=== PATIENT | male | born 1960 | race Caucasian/White ===

== ENCOUNTER 2017-01-09 14:03 | Emergency (ER) | payer OTHER ==
[~2017-01-09 14:03] MED LIST: CLC100 PO; MORP30TA23 PO; Oxycodone PO
[2017-01-09] MEDS ORDERED: SODIUM CHLORIDE 0.9% 1000ML 1,000 ML IV STA ×2 (14:10)
[2017-01-09] MEDS ORDERED: FENTANYL CITRATE INJ 50 MCG/1 ML 2 ML VIAL IV STA (14:10)
[2017-01-09] MEDS ORDERED: FENTANYL CITRATE INJ 50 MCG/1 ML 2 ML VIAL ONE (14:15)
[2017-01-09 14:19] VITALS: O2SAT 95
[2017-01-09] MEDS ORDERED: OPTIRAY 320 IV PRN (14:30)
[2017-01-09 14:41] LABS: BASO % 0.4 %; BASO ABS # 0.02 K/uL (0-0.2); COMPLETE YES; EOS % 0.8 %; HEMATOCRIT 40.4 % (42-52); LYMPH % 22.8 %; LYMPH ABS # 1.16 K/uL (1.2-3.4); MEAN CELL VOLUME 90.6 fL (80-100); MEAN CORPUSCULAR HEMOGLOBIN 31.2 pg (25-34); MEAN CORPUSCULAR HGB CONC 34.4 g/dl (32-36); MEAN PLATELET VOLUME 10.5 fL (7.4-10.4); MONO % 6.3 %; NEUT % 68.7 %; PLATELET COUNT 140 K/uL (130-400); RED BLOOD COUNT 4.46 M/uL (4.7-6.1); WHITE BLOOD COUNT 5.08 K/uL (4.8-10.8)
[2017-01-09 14:43] LABS: ISTAT CREATININE 1.5 mg/dl (0.6-1.3); ISTAT HEMOGLOBIN 14.3 g/dl (14.0-18.0); ISTAT IONIZED CALCIUM 1.22 mmol/l (1.12-1.32)
[2017-01-09 14:43] LABS: VENOUS BLOOD GAS PCO2 48 mmHg (38.0-50.0); VENOUS BLOOD GAS PO2 30 mmHg
[2017-01-09 14:44] LABS: VEN BLD GAS O2 SATURATION < 60.0 %
--- NOTE | 2017-01-09 14:52 | DIAGNOSTIC IMAGING REPORT ---
CHEST ONE VIEW PORTABLE CLINICAL HISTORY: EVALUATE FOR TRAUMA/INJURY pain COMPARISON STUDY: 11/13/2006 FINDINGS: The bones soft tissues and hemidiaphragms are normal. The cardiomediastinal silhouette is normal. The lungs are clear. The pulmonary vasculature is normal. IMPRESSION: Negative chest. The above report was generated using voice recognition software. It may contain grammatical, syntax or spelling errors. Electronically signed by: David Manzanares M.D. 01/09/2017 2:51 PM Dictated Date/Time: 01/09/2017 2:51 PM
--- NOTE | 2017-01-09 14:55 | DIAGNOSTIC IMAGING REPORT ---
PELVIS 1 OR 2 VIEW ROUTINE CLINICAL HISTORY: pelvic pain fall COMPARISON STUDY: Pelvis 09/22/2006. FINDINGS: Mild right and moderate to severe left hip osteoarthritis. This has progressed. Vascular coils are seen within the left side of the pelvis. No fracture or dislocation within the pelvis or hips. The right greater trochanter is not completely included on this study. The sacrum appears intact. IMPRESSION: No fracture or dislocation within the pelvis or hips. Electronically signed by: Addison Hernandez M.D. 01/09/2017 2:53 PM Dictated Date/Time: 01/09/2017 2:51 PM
[2017-01-09] MEDS ORDERED: FENTANYL CITRATE INJ 50 MCG/1 ML 2 ML VIAL IV ONE (15:02)
--- NOTE | 2017-01-09 15:02 | DIAGNOSTIC IMAGING REPORT ---
HEAD CT NONCONTRAST CT DOSE: HISTORY: Trauma. Injury. EVALUATE FOR TRAUMA/INJURY TECHNIQUE: Multiaxial CT images of the head were performed without the use of intravenous contrast. Automated exposure control was utilized for this study. A dose lowering technique was utilized adhering to the principles of ALARA. Comparison: None. Findings: The paranasal sinuses and mastoid air cells are clear. The calvarium and skull base are intact. The ventricles and sulci are within normal limits. There is no mass, hematoma, midline shift, or acute infarct. Impression: No acute intracranial abnormality. Electronically signed by: Addison Hernandez M.D. 01/09/2017 3:00 PM Dictated Date/Time: 01/09/2017 2:56 PM
--- NOTE | 2017-01-09 15:02 | DIAGNOSTIC IMAGING REPORT ---
CERVICAL SPINE W/O CT DOSE: HISTORY: Trauma. Pain. EVALUATE FOR TRAUMA/INJURY TECHNIQUE: Multiaxial CT images of the cervical spine were performed and reformatted in the sagittal and coronal plane without the use of contrast. A dose lowering technique was utilized adhering to the principles of ALARA. COMPARISON: None. FINDINGS: No fractures. No subluxation. Prevertebral soft tissues and the C1-C2 interval are intact. No pneumothorax. IMPRESSION: No fractures within the cervical spine. Moderate degenerative change The above report was generated using voice recognition software. It may contain grammatical, syntax or spelling errors. Electronically signed by: David Manzanares M.D. 01/09/2017 3:01 PM Dictated Date/Time: 01/09/2017 2:58 PM
--- NOTE | 2017-01-09 15:06 | DIAGNOSTIC IMAGING REPORT ---
THORACIC SPINE CT CT DOSE: HISTORY: back pain fall TECHNIQUE: Multiaxial CT images of the thoracic spine were performed and reformatted in the sagittal and coronal plane without the use of contrast. A dose lowering technique was utilized adhering to the principles of ALARA. COMPARISON: None. FINDINGS: No fractures. No subluxation. Paraspinal soft tissues are unremarkable. Minimal to mild degenerative changes seen within the thoracic spine. IMPRESSION: No fractures within the thoracic spine. Electronically signed by: Addison Hernandez M.D. 01/09/2017 3:05 PM Dictated Date/Time: 01/09/2017 3:00 PM
--- NOTE | 2017-01-09 15:06 | DIAGNOSTIC IMAGING REPORT ---
(CHEST) THORAX WITH CT DOSE: 2783.50 mGy.cm HISTORY: Trauma Trauma TECHNIQUE: Multiaxial CT images of the chest were performed following the intravenous administration of contrast. A dose lowering technique was utilized adhering to the principles of ALARA. COMPARISON: None. FINDINGS: The lungs are clear. The mediastinal vascular structures are within normal limits. No mediastinal or hilar lymphadenopathy. No pleural effusion or pneumothorax. Limited views of the upper abdomen demonstrate a normal liver and spleen. IMPRESSION: No significant abnormality identified within the chest. Minimal dependent basilar atelectasis. The above report was generated using voice recognition software. It may contain grammatical, syntax or spelling errors. Electronically signed by: David Manzanares M.D. 01/09/2017 3:04 PM Dictated Date/Time: 01/09/2017 3:01 PM
[2017-01-09 15:08] LABS: ALT/SGPT 83 U/L (12-78); AST/SGOT 64 U/L (15-37); BLOOD UREA NITROGEN 20 mg/dl (7-18); CALCIUM 9.9 mg/dl (8.5-10.1); CARBON DIOXIDE 27 mmol/L (21-32); CHLORIDE 108 mmol/L (98-107); GLUCOSE 118 mg/dl (70-99); POTASSIUM 3.7 mmol/L (3.5-5.1); SODIUM 145 mmol/L (136-145)
--- NOTE | 2017-01-09 15:09 | DIAGNOSTIC IMAGING REPORT ---
ABD/PELVIS IV CONTRAST ONLY CT DOSE: HISTORY: Trauma. Pain. abd back pain TECHNIQUE: Multiaxial CT images of the abdomen and pelvis were performed following the use of intravenous contrast. A dose lowering technique was utilized adhering to the principles of ALARA. COMPARISON STUDY: None. FINDINGS: Lung bases show minimal dependent atelectasis. Liver spleen and pancreas are uniform. Mild abdominal and pelvic adenopathy is stable to improved from the prior study. Bowel pattern is nonobstructive. Kidneys negative for hydronephrosis. Bladder is midline. No significant free fluid within the pelvic cul-de-sac region. IMPRESSION: No acute process in the abdomen or pelvis. Adenopathy improved from the prior PET scan of 2011 The above report was generated using voice recognition software. It may contain grammatical, syntax or spelling errors. Electronically signed by: David Manzanares M.D. 01/09/2017 3:08 PM Dictated Date/Time: 01/09/2017 3:05 PM
[2017-01-09 15:10] LABS: ALKALINE PHOSPHATASE 61 U/L (45-117)
--- NOTE | 2017-01-09 15:19 | DIAGNOSTIC IMAGING REPORT ---
LUMBAR SPINE CT CT DOSE: HISTORY: back pain fall TECHNIQUE: Multiaxial CT images of the lumbar spine were performed and reformatted in the sagittal and coronal plane without the use of contrast. A dose lowering technique was utilized adhering to the principles of ALARA. COMPARISON: None. FINDINGS: Nondisplaced fracture within the anterior osteophyte at the superior endplate of L4. No additional fractures identified within the lumbar spine. Vertebral body heights are maintained. Disc space narrowing at L4-L5 and L1-L2. Paraspinal soft tissues are unremarkable. 4 mm of retrolisthesis of L4 and L5. Also mild disc space narrowing at L3-L4. The visualized left sacroiliac joint appears fused. Mild facet degenerative changes seen within the lower lumbar spine. IMPRESSION: Nondisplaced fracture within the anterior osteophyte at the superior endplate of L4. Vertebral body heights are maintained. Electronically signed by: Addison Hernandez M.D. 01/09/2017 3:18 PM Dictated Date/Time: 01/09/2017 3:12 PM
[2017-01-09] MEDS ORDERED: LACTATED RINGER'S 1000ML 1,000 ML IV STA (15:20)
--- NOTE | 2017-01-09 15:54 | DIAGNOSTIC IMAGING REPORT ---
R ANKLE MIN 3 VIEWS ROUTINE, R TIBIA/FIBULA 2 VIEWS ROUTINE, R FOOT MIN 3 VIEWS ROUTINE CLINICAL HISTORY: Right lower leg, ankle, foot pain. Fall. COMPARISON STUDY: None. FINDINGS: Possible nondisplaced fracture within the distal right fibula. Questionable step-off within the posterior calcaneus. This may also represent a small fracture. This is nondisplaced. There is a homolateral Lisfranc fracture/dislocation. This demonstrates up to 1.8 cm of lateral displacement. Soft tissue swelling within the midfoot. No acute fracture within the tibia or proximal fibula. IMPRESSION: 1. Displaced homolateral Lisfranc fracture/dislocation. 2. Possible nondisplaced fractures within the distal right fibula and posterior calcaneus. Electronically signed by: Addison Hernandez M.D. 01/09/2017 3:52 PM Dictated Date/Time: 01/09/2017 3:47 PM
[2017-01-09] MEDS ORDERED: MoRPHine SULFATE 4 MG/ML 1 ML CARP\\VIAL IV STA (15:55)
--- NOTE | 2017-01-09 15:58 | DIAGNOSTIC IMAGING REPORT ---
LEFT FOOT 2 VIEWS CLINICAL HISTORY: Left foot pain status post trauma COMPARISON: None DISCUSSION: There is a talonavicular dislocation. There is also a subtalar dislocation. No metatarsal fractures are visualized the provided projections. IMPRESSION: 1. Subtalar dislocation 2. Dislocation of the talonavicular joint. Electronically signed by: Colton Villagran M.D. 01/09/2017 3:56 PM Dictated Date/Time: 01/09/2017 3:54 PM
--- NOTE | 2017-01-09 16:01 | DIAGNOSTIC IMAGING REPORT ---
LEFT ANKLE 2 VIEWS CLINICAL HISTORY: Left ankle pain status post trauma COMPARISON: None. DISCUSSION: Evaluation is difficult due to positioning and the patient's hindfoot deformity. There is a subtalar dislocation. There is a talonavicular dislocation. There is an equivocal medial malleolar fracture. There are small fracture fragment is visualized adjacent to the inferolateral talus. IMPRESSION: 1. Subtalar dislocation 2. Talonavicular dislocation 3. Tiny fracture fragments adjacent to the inferolateral talus 4. Equivocal chip fracture arising from the medial malleolus Electronically signed by: Colton Villagran M.D. 01/09/2017 3:59 PM Dictated Date/Time: 01/09/2017 3:57 PM
--- NOTE | 2017-01-09 16:06 | DIAGNOSTIC IMAGING REPORT ---
L TIBIA/FIBULA 2 VIEWS ROUTINE CLINICAL HISTORY: pain deformity pain. COMPARISON: None. DISCUSSION: The bones and joint spaces appear intact. There is no evidence of fracture, dislocation or bony disease. There is no evidence for soft tissue swelling. IMPRESSION: Negative study. Linear lucency of the mid tibial shaft on the AP projection felt to be artifactual. The above report was generated using voice recognition software. It may contain grammatical, syntax or spelling errors. Electronically signed by: David Manzanares M.D. 01/09/2017 4:04 PM Dictated Date/Time: 01/09/2017 4:03 PM
[2017-01-09] MEDS ORDERED: D5NSS + 20MEQ KCL 1,000 ML IV STA (16:52)
[2017-01-09 17:01] LABS: URINE APPEARANCE CLEAR (CLEAR); URINE BILIRUBIN NEG (NEG); URINE COLOR YELLOW; URINE NITRITE NEG (NEG); URINE PH 5.5 (4.5-7.5); URINE SPECIFIC GRAVITY 1.026 (1.000-1.030); UROBILINOGEN NEG (NEG)
[2017-01-09 17:04] LABS: MANUAL MICROSCOPIC REQUIRED? NO; REVIEW REQ? NO
--- NOTE | 2017-01-09 17:06 | EMERGENCY ROOM VISIT NOTE ---
History Report prepared by Thom: Stella Gleason Under the Supervision of: Dr. Tenzin Lim M.D. 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 The patient was on his roof. He lost his balance and fell 10 feet to the ground. He landed on his feet. He is having ankle and foot pain. The pain worsens when he bears weight on his feet. He denies any nausea, lightheadedness, back pain, knee pain, hip pain, or neck pain. He is not on any blood thinners. He is not on any medications. He has a history of left hip surgery. Source of History: patient Onset: LATHE SET UP OPERATOR Position: other (global) Quality: other (fall) Timing: other (episodic) Associated Symptoms: No neck pain, No nausea, No back pain Note: Pt reports ankle pain, foot pain. Pt denies lightheadedness, knee pain, hip pain. Review of Systems See HPI for pertinent positives and negatives. A total of ten systems were reviewed and were otherwise negative. Past Medical & Surgical Medical Problems: (1) B-cell lymphoma Social History Smoking Status: Never Smoker Marital Status: single Occupation Status: unemployed Current/Historical Medications No Active Prescriptions or Reported Meds Allergies Coded Allergies: No Known Allergies (Verified , `, 01/09/17) Physical Exam Vital Signs Date Time Temp Pulse Resp B/P (MAP) Pulse Ox O2 Delivery O2 Flow Rate FiO2 01/09/17 19:00 37.1 85 18 145/96 96 01/09/17 18:51 37.1 85 18 145/96 96 01/09/17 18:29 85 18 145/96 96 Room Air 01/09/17 17:45 80 20 154/106 95 Room Air 01/09/17 17:30 78 20 199/109 100 Room Air 01/09/17 15:55 75 20 176/104 98 Room Air 01/09/17 14:31 73 18 112/64 95 Room Air 01/09/17 14:19 95 Room Air 01/09/17 14:08 73 01/09/17 14:06 37.1 76 24 112/64 94 Room Air Physical Exam GENERAL: Awake, alert, well-appearing, in no distress HENT: Normocephalic, atraumatic. Oropharynx unremarkable. Dry mucous membranes. EYES: Normal conjunctiva. Sclera non-icteric. NECK: Mild tenderness to the lower cervical spine. No step offs. RESPIRATORY: Clear to auscultation. CARDIAC: Regular rate, normal rhythm. Extremities warm and well perfused. Pulses equal. ABDOMEN: Soft, non-distended. No tenderness to palpation. No rebound or guarding. No masses. RECTAL: Deferred. MUSCULOSKELETAL: Chest examination reveals no tenderness. The back is symmetrical on inspection without obvious abnormality. There is no CVA tenderness to palpation. No joint edema. Stable pelvis. LOWER EXTREMITIES: Grossly deformed ankles bilaterally with distal cap refill, motor, sensory intact. Left ankle has a large medial malleolar bulge with some mild tenting of the skin and underlying hematoma. Right foot with mild skin tenting on medial aspect of arch. Triphasic PT and DP pulses which are detectable by Doppler bilaterally. NEURO: Normal sensorium. No sensory or motor deficits noted. SKIN: No rash or jaundice noted. Pale, diaphoretic, clammy. Medical Decision & Procedures ER Provider Diagnostic Interpretation: Radiology results as stated below per my review and radiologist interpretation: CHEST ONE VIEW PORTABLE CLINICAL HISTORY: EVALUATE FOR TRAUMA/INJURY pain COMPARISON STUDY: 11/13/2006 FINDINGS: The bones soft tissues and hemidiaphragms are normal. The cardiomediastinal silhouette is normal. The lungs are clear. The pulmonary vasculature is normal. IMPRESSION: Negative chest. The above report was generated using voice recognition software. It may contain grammatical, syntax or spelling errors. Electronically signed by: David Manzanares M.D. 01/09/2017 2:51 PM Dictated Date/Time: 01/09/2017 2:51 PM PELVIS 1 OR 2 VIEW ROUTINE CLINICAL HISTORY: pelvic pain fall COMPARISON STUDY: Pelvis 09/22/2006. FINDINGS: Mild right and moderate to severe left hip osteoarthritis. This has progressed. Vascular coils are seen within the left side of the pelvis. No fracture or dislocation within the pelvis or hips. The right greater trochanter is not completely included on this study. The sacrum appears intact. IMPRESSION: No fracture or dislocation within the pelvis or hips. Electronically signed by: Addison Hernandez M.D. 01/09/2017 2:53 PM Dictated Date/Time: 01/09/2017 2:51 PM R ANKLE MIN 3 VIEWS ROUTINE, R TIBIA/FIBULA 2 VIEWS ROUTINE, R FOOT MIN 3 VIEWS ROUTINE CLINICAL HISTORY: Right lower leg, ankle, foot pain. Fall. COMPARISON STUDY: None. FINDINGS: Possible nondisplaced fracture within the distal right fibula. Questionable step-off within the posterior calcaneus. This may also represent a small fracture. This is nondisplaced. There is a homolateral Lisfranc fracture/dislocation. This demonstrates up to 1.8 cm of lateral displacement. Soft tissue swelling within the midfoot. No acute fracture within the tibia or proximal fibula. IMPRESSION: 1. Displaced homolateral Lisfranc fracture/dislocation. 2. Possible nondisplaced fractures within the distal right fibula and posterior calcaneus. Electronically signed by: Addison Hernandez M.D. 01/09/2017 3:52 PM Dictated Date/Time: 01/09/2017 3:47 PM L TIBIA/FIBULA 2 VIEWS ROUTINE CLINICAL HISTORY: pain deformity pain. COMPARISON: None. DISCUSSION: The bones and joint spaces appear intact. There is no evidence of fracture, dislocation or bony disease. There is no evidence for soft tissue swelling. IMPRESSION: Negative study. Linear lucency of the mid tibial shaft on the AP projection felt to be artifactual. The above report was generated using voice recognition software. It may contain grammatical, syntax or spelling errors. Electronically signed by: David Manzanares M.D. 01/09/2017 4:04 PM Dictated Date/Time: 01/09/2017 4:03 PM LEFT ANKLE 2 VIEWS CLINICAL HISTORY: Left ankle pain status post trauma COMPARISON: None. DISCUSSION: Evaluation is difficult due to positioning and the patient's hindfoot deformity. There is a subtalar dislocation. There is a talonavicular dislocation. There is an equivocal medial malleolar fracture. There are small fracture fragment is visualized adjacent to the inferolateral talus. IMPRESSION: 1. Subtalar dislocation 2. Talonavicular dislocation 3. Tiny fracture fragments adjacent to the inferolateral talus 4. Equivocal chip fracture arising from the medial malleolus Electronically signed by: Colton Villagran M.D. 01/09/2017 3:59 PM Dictated Date/Time: 01/09/2017 3:57 PM LEFT FOOT 2 VIEWS CLINICAL HISTORY: Left foot pain status post trauma COMPARISON: None DISCUSSION: There is a talonavicular dislocation. There is also a subtalar dislocation. No metatarsal fractures are visualized the provided projections. IMPRESSION: 1. Subtalar dislocation 2. Dislocation of the talonavicular joint. Electronically signed by: Colton Villagran M.D. 01/09/2017 3:56 PM Dictated Date/Time: 01/09/2017 3:54 PM CERVICAL SPINE W/O CT DOSE: HISTORY: Trauma. Pain. EVALUATE FOR TRAUMA/INJURY TECHNIQUE: Multiaxial CT images of the cervical spine were performed and reformatted in the sagittal and coronal plane without the use of contrast. A dose lowering technique was utilized adhering to the principles of ALARA. COMPARISON: None. FINDINGS: No fractures. No subluxation. Prevertebral soft tissues and the C1-C2 interval are intact. No pneumothorax. IMPRESSION: No fractures within the cervical spine. Moderate degenerative change The above report was generated using voice recognition software. It may contain grammatical, syntax or spelling errors. Electronically signed by: David Manzanares M.D. 01/09/2017 3:01 PM Dictated Date/Time: 01/09/2017 2:58 PM (CHEST) THORAX WITH CT DOSE: 2783.50 mGy.cm HISTORY: Trauma Trauma TECHNIQUE: Multiaxial CT images of the chest were performed following the intravenous administration of contrast. A dose lowering technique was utilized adhering to the principles of ALARA. COMPARISON: None. FINDINGS: The lungs are clear. The mediastinal vascular structures are within normal limits. No mediastinal or hilar lymphadenopathy. No pleural effusion or pneumothorax. Limited views of the upper abdomen demonstrate a normal liver and spleen. IMPRESSION: No significant abnormality identified within the chest. Minimal dependent basilar atelectasis. The above report was generated using voice recognition software. It may contain grammatical, syntax or spelling errors. Electronically signed by: David Manzanares M.D. 01/09/2017 3:04 PM Dictated Date/Time: 01/09/2017 3:01 PM ABD/PELVIS IV CONTRAST ONLY CT DOSE: HISTORY: Trauma. Pain. abd back pain TECHNIQUE: Multiaxial CT images of the abdomen and pelvis were performed following the use of intravenous contrast. A dose lowering technique was utilized adhering to the principles of ALARA. COMPARISON STUDY: None. FINDINGS: Lung bases show minimal dependent atelectasis. Liver spleen and pancreas are uniform. Mild abdominal and pelvic adenopathy is stable to improved from the prior study. Bowel pattern is nonobstructive. Kidneys negative for hydronephrosis. Bladder is midline. No significant free fluid within the pelvic cul-de-sac region. IMPRESSION: No acute process in the abdomen or pelvis. Adenopathy improved from the prior PET scan of 2011 The above report was generated using voice recognition software. It may contain grammatical, syntax or spelling errors. Electronically signed by: David Manzanares M.D. 01/09/2017 3:08 PM Dictated Date/Time: 01/09/2017 3:[address] DOSE: HISTORY: back pain fall TECHNIQUE: Multiaxial CT images of the thoracic spine were performed and reformatted in the sagittal and coronal plane without the use of contrast. A dose lowering technique was utilized adhering to the principles of ALARA. COMPARISON: None. FINDINGS: No fractures. No subluxation. Paraspinal soft tissues are unremarkable. Minimal to mild degenerative changes seen within the thoracic spine. IMPRESSION: No fractures within the thoracic spine. Electronically signed by: Addison Hernandez M.D. 01/09/2017 3:05 PM Dictated Date/Time: 01/09/2017 3:[address] DOSE: HISTORY: back pain fall TECHNIQUE: Multiaxial CT images of the lumbar spine were performed and reformatted in the sagittal and coronal plane without the use of contrast. A dose lowering technique was utilized adhering to the principles of ALARA. COMPARISON: None. FINDINGS: Nondisplaced fracture within the anterior osteophyte at the superior endplate of L4. No additional fractures identified within the lumbar spine. Vertebral body heights are maintained. Disc space narrowing at L4-L5 and L1-L2. Paraspinal soft tissues are unremarkable. 4 mm of retrolisthesis of L4 and L5. Also mild disc space narrowing at L3-L4. The visualized left sacroiliac joint appears fused. Mild facet degenerative changes seen within the lower lumbar spine. IMPRESSION: Nondisplaced fracture within the anterior osteophyte at the superior endplate of L4. Vertebral body heights are maintained. Electronically signed by: Addison Hernandez M.D. 01/09/2017 3:18 PM Dictated Date/Time: 01/09/2017 3:12 PM Laboratory Results 01/09/17 14:18 Red Blood Count 4.46, Mean Corpuscular Volume 90.6, Mean Corpuscular Hemoglobin 31.2, Mean Corpuscular Hemoglobin Concent 34.4, Mean Platelet Volume 10.5, Neutrophils (%) (Auto) 68.7, Lymphocytes (%) (Auto) 22.8, Monocytes (%) (Auto) 6.3, Eosinophils (%) (Auto) 0.8, Basophils (%) (Auto) 0.4, Neutrophils # (Auto) 3.49, Lymphocytes # (Auto) 1.16, Monocytes # (Auto) 0.32, Eosinophils # (Auto) 0.04, Basophils # (Auto) 0.02 01/09/17 14:18 Test 01/09/17 14:18 01/09/17 14:26 01/09/17 14:28 01/09/17 16:45 White Blood Count 5.08 K/uL (4.8-10.8) Red Blood Count 4.46 M/uL (4.7-6.1) Hemoglobin 13.9 g/dL (14.0-18.0) Hematocrit 40.4 % (42-52) Mean Corpuscular Volume 90.6 fL (80-100) Mean Corpuscular Hemoglobin 31.2 pg (25-34) Mean Corpuscular Hemoglobin Concent 34.4 g/dl (32-36) Platelet Count 140 K/uL (130-400) Mean Platelet Volume 10.5 fL (7.4-10.4) Neutrophils (%) (Auto) 68.7 % Lymphocytes (%) (Auto) 22.8 % Monocytes (%) (Auto) 6.3 % Eosinophils (%) (Auto) 0.8 % Basophils (%) (Auto) 0.4 % Neutrophils # (Auto) 3.49 K/uL (1.4-6.5) Lymphocytes # (Auto) 1.16 K/uL (1.2-3.4) Monocytes # (Auto) 0.32 K/uL (0.11-0.59) Eosinophils # (Auto) 0.04 K/uL (0-0.5) Basophils # (Auto) 0.02 K/uL (0-0.2) RDW Standard Deviation 43.6 fL (36.4-46.3) RDW Coefficient of Variation 13.2 % (11.5-14.5) Immature Granulocyte % (Auto) 1.0 % Immature Granulocyte # (Auto) 0.05 K/uL (0.00-0.02) Estimated GFR () 59.9 Estimated GFR (Non- 51.7 BUN/Creatinine Ratio 13.0 (10-20) Calcium Level 9.9 mg/dl (8.5-10.1) Total Bilirubin 1.2 mg/dl (0.2-1) Direct Bilirubin 0.3 mg/dl (0-0.2) Aspartate Amino Transf (AST/SGOT) 64 U/L (15-37) Alanine Aminotransferase (ALT/SGPT) 83 U/L (12-78) Alkaline Phosphatase 61 U/L (45-117) Total Protein 7.4 gm/dl (6.4-8.2) Albumin 4.2 gm/dl (3.4-5.0) Venous Blood pH 7.40 (7.36-7.41) Venous Blood Partial Pressure CO2 48 mmHg (38.0-50.0) Venous Blood Partial Pressure O2 30 mmHg Venous Blood HCO3 30 mmol/L Venous Blood Oxygen Saturation < 60.0 % Venous Blood Base Excess 4.0 mEq/L Lactic Acid Level 2.3 mmol/L (0.4-2.0) Bedside Hemoglobin 14.3 g/dl (14.0-18.0) Bedside Hematocrit 42 % (42-52) Bedside Sodium 145 mEq/L (135-144) Bedside Potassium 3.3 mEq/L (3.3-5.0) Bedside Chloride 104 mEq/L (101-112) Bedside Total CO2 27 mEq/l (24-31) Anion Gap 19.0 mmol/L (16-25) Bedside Blood Urea Nitrogen 22 mg/dl (7-18) Bedside Creatinine 1.5 mg/dl (0.6-1.3) Bedside Glucose (other) 81 mg/dl (70-99) Bedside Ionized Calcium (Vick) 1.22 mmol/l (1.12-1.32) Urine Color YELLOW Urine Appearance CLEAR (CLEAR) Urine pH 5.5 (4.5-7.5) Urine Specific [place] 1.026 (1.000-1.030) Urine Protein NEG (NEG) Urine Glucose (UA) NEG (NEG) Urine Ketones NEG (NEG) Urine Occult Blood NEG (NEG) Urine Nitrite NEG (NEG) Urine Bilirubin NEG (NEG) Urine Urobilinogen NEG (NEG) Urine Leukocyte Esterase NEG (NEG) Laboratory results reviewed by me Medications Administered Medications (Trade) Dose Ordered Sig/Tyshawn Route Start Time Stop Time Status Last Admin Dose Admin Sodium Chloride 1,000 ml @ 999 mls/hr Q1H1M STAT IV 01/09/17 14:10 01/09/17 15:10 DC 01/09/17 14:10 999 MLS/HR Sodium Chloride 1,000 ml @ 999 mls/hr Q1H1M STAT IV 01/09/17 14:10 01/09/17 15:10 DC 01/09/17 14:10 999 MLS/HR Fentanyl Citrate (Fentanyl Inj) 50 mcg NOW STAT IV 01/09/17 14:10 01/09/17 14:17 DC 01/09/17 14:10 50 MCG Fentanyl Citrate (Fentanyl Inj) 100 mcg ONE ONCE IV 01/09/17 15:02 01/09/17 15:03 DC 01/09/17 15:03 100 MCG Lactated Ringer's 1,000 ml @ 999 mls/hr Q1H1M STAT IV 01/09/17 15:20 01/09/17 16:20 DC 01/09/17 15:50 999 MLS/HR Morphine Sulfate (MoRPHine SULFATE INJ) 4 mg NOW STAT IV 01/09/17 15:55 01/09/17 15:56 DC 01/09/17 16:04 4 MG Potassium Chloride/Dextrose/ Sod Cl 1,000 ml @ 125 mls/hr Q8H STAT IV 01/09/17 16:52 01/09/17 19:28 DC 01/09/17 17:31 125 MLS/HR Morphine Sulfate (MoRPHine SULFATE INJ) 10 mg STK-MED ONCE .ROUTE 01/09/17 18:24 01/09/17 18:25 DC 01/09/17 18:24 6 MG ECG Indication: diaphoresis Rate (beats per minute): 72 Rhythm: normal sinus Findings: no acute ischemic change, other (normal axis) ED Course 1405: The patient was evaluated in room B1. A complete history and physical exam was performed. 1410: Fentanyl Inj 50 mcg IV, NSS 1000 ml @ 999 mls/hr IV, NSS 1000 ml @ 999 mls /hr IV. 1502: Fentanyl Inj 100 mcg IV. 1520: Lactated Ringer's 1000 ml @ 999 mls/hr IV. 1539: I discussed the patient's case with Dr. Sotelo, [facility] ortho spine. He states that there is nothing to do for his spine. 1555: Morphine Sulfate 4 mg IV. 1624: I discussed the patient's case with Dr. Quiles, [facility] orthopedic surgery. He will come and evaluate the patient. 1652: Potassium Chloride/Dextrose/Sod Cl 1000 ml @ 125 mls/hr IV. 1708: Dr. Quiles called to inform me that the patients fractures are very complicated and that he could not treat the patient. His is contacting Dr. Nunes who is a foot and ankle specialist. If he is not available, the patient will need to be transferred. 1726: Dr. Quiles has called back. He informed me that Dr. Nunes is not available. He recommends that the patient be transferred for further treatment. 1728: I reevaluated the patient. I discussed the results with him. I updated him on the plan. 1746: I discussed the patient's case with Dr. Cornell, [facility] [place]. He recommends transfer to the [facility] [place]. 1754: I discussed the patient's case with Dr. Jorgensen, [facility] [place] medicine. He has accepted the patient for transfer by air. Medical Decision I reviewed the patient's past medical history, medications, and the nursing notes as described above. Differential diagnosis: fracture, dislocation, soft tissue injury, spine fracture/dislocation. Patient is a 56-year-old gentleman who presents to emergency department after having a 10 foot fall from a ladder onto his feet suffering bilateral ankle and foot deformities. History of present illness. On arrival the patient appears pale, diaphoretic, clammy. Systolic blood pressure in the 100s. Heart rate normal sinus. Exam head mild lower C-spine tenderness to palpation without any step-offs. Otherwise he has notable grossly deformed bilateral ankles and feet. Moderate left ankle medial protuberance with tenting underlying hematoma. Mild skin tenting on medial aspect of arch of right foot. Given the patient's mechanism and diaphoretic presentation, CT scan of the head chest abdomen pelvis, as well as CT L spine was done. Only traumatic finding was a nondisplaced fracture of an anterior osteophyte at L4. Otherwise x-rays of the patient's lower extremity shows Lisfranc fracture/dislocation of the right foot , and subtalar/talonavicular dislocation of the left foot. Case was discussed with [facility], Dr. Sotelo, who agrees that the patient does not require transfer for L spine findings. Additionally, case was discussed with [facility] on-call, Dr. Quiles, regarding ankle and foot fractures. Evaluation and review of imaging pending. Otherwise patient does have a mildly elevated lactate 2 however in the setting of trauma, will hydrate and trend. Patient has been hemodynamically stable and without any additional traumatic. I discussed further with Dr. Quiles, [facility] ortho, and after reviewing films recommends accounting support specialist particularly for lis franc fx/dislocation,which will require open reduction/fixation. He attempted to contact our foot/ankle specialist however we were unable to contact him. Thus recommending transfer to tertiary care facility with readily available specialist. Case was d/w Dr. Cornell, orthopedist, at [facility], who agrees with transfer to ED. Recommends closed reduction of subtalar dislocation if possible prior to transfer in the setting of skin tenting. However, I explained that we would be unlikely to reduce this in a prompt manner and I would not want to delay his transfer any further particularly since he also has mild tenting of medial arch of right foot as well. Dr. Quiles repaged to see if reduction possible. Otherwise, I further d/w Dr. Jorgensen, ED attending, who accepts patient for transfer and will send life flight for transfer. Medication Reconcilliation Current Medication List: was personally reviewed by me Blood Pressure Screening Patient's blood pressure: Elevated blood pressure Blood pressure disposition: Elevated BP felt to be situational Consults Time Called: 1534 Consulting Physician: Dr. Sotelo, [facility] ortho spine Returned Call: 1539 I discussed the patient's case with him. He states that there is nothing to do for his spine. Additional Consults: Time Called: 1545 Consulted Physician: Dr. Quiles, [facility] orthopedic surgery Returned Call: [phone] Additional Comments: I discussed the patient's case with him. He will come and evaluate the patient. Time Called: 1739 Consulted Physician: Dr. Cornell, [facility] [place] Returned Call: [phone] Additional Comments: I discussed the patient's case with him. He recommends transfer to the [facility] [place]. Impression Primary Impression: Lisfranc fracture Additional Impression: Dislocation of subtalar joint Scribe Attestation The scribe's documentation has been prepared under my direction and personally reviewed by me in its entirety. I confirm that the note above accurately reflects all work, treatment, procedures, and medical decision making performed by me. Departure Information Prescriptions No Active Prescriptions or Reported Meds Referrals Pro,Brandon Wilks M.D. (PCP) Patient Instructions My [facility] Problem Qualifiers
[2017-01-09] MEDS ORDERED: MoRPHine SULFATE 10 MG/ML CARP/VIAL IV STA (18:23)
[2017-01-09] MEDS ORDERED: MoRPHine SULFATE 10 MG/ML CARP/VIAL ONE (18:24)
[2017-01-09 19:00] VITALS: BP 145/96; PULSE 85; TEMP 37.1; O2SAT 96
== END 2017-01-09 18:45 | disposition short-term general hospital (02) ==
LOC: C.EDB 14:05
DX: S93.324A Dislocation of tarsometatarsal joint of right foot, initial encounter (principal); S93.326A Dislocation of tarsometatarsal joint of unspecified foot, initial encounter; S32.049A Unspecified fracture of fourth lumbar vertebra, initial encounter for closed fracture; W13.2XXA Fall from, out of or through roof, initial encounter; Z85.72 Personal history of non-Hodgkin lymphomas

== ENCOUNTER → 2017-04-03 | Outpatient (CLI) | payer OTHER ==
--- NOTE | 2017-04-03 14:50 | DIAGNOSTIC IMAGING REPORT ---
L FOOT MIN 3 VIEWS ROUTINE CLINICAL HISTORY: S92.102A Closed fracture of talus of left foot S92.101A COMPARISON: 01/09/2017 DISCUSSION: There is a suspected healing fracture involving the posterior process of the talus. There are arthritic changes within the subtalar joint posteriorly. Mild degenerative changes are present the level tarsometatarsal joints. There are no acute fractures. The bones are mildly osteopenic IMPRESSION: 1. Healing fracture involving the posterior process the talus 2. Arthritic changes within the subtalar joint. 3. No acute fractures. Electronically signed by: Colton Villagran M.D. 04/03/2017 2:49 PM Dictated Date/Time: 04/03/2017 2:46 PM
--- NOTE | 2017-04-03 14:53 | DIAGNOSTIC IMAGING REPORT ---
R FOOT MIN 3 VIEWS ROUTINE HISTORY: 57 years-old Male S92.102A Closed fracture of talus of left footS92.101A Closed fr COMPARISON: Right foot radiographs 01/09/2017 TECHNIQUE: 3 views of the right foot FINDINGS: Bones are mildly demineralized. Hallux valgus deformity with moderate degenerative changes of the first MTP joint. There is increased distance between the base of the first and second metatarsal bases, 4 mm compatible with prior Lisfranc ligament disruption. There is improved alignment of the midfoot and forefoot from comparison study with healing sclerosis seen involving the base of the metatarsals from prior fracture dislocation injury. Moderate forefoot soft tissue swelling. There is 4 mm dorsal subluxation of the second metatarsal base in relation to the adjacent cuneiform. Sclerosis involving the posterior calcaneus and distal fibula compatible with healing fractures. IMPRESSION: 1. Improved midfoot and forefoot alignment status post displaced homolateral Lisfranc fracture dislocation injury with healing sclerosis noted involving the forefoot. 2. Healing fractures of the distal fibula and posterior calcaneus. 3. Moderate forefoot soft tissue swelling. The above report was generated using voice recognition software. It may contain grammatical, syntax or spelling errors. Electronically signed by: Tung Matos M.D. 04/03/2017 2:51 PM Dictated Date/Time: 04/03/2017 2:46 PM
== END | disposition home or self-care (01) ==
LOC: C.RAD1850 14:33
PROVIDERS: ATTEND Internal Medicine
DX: S92.102D Unspecified fracture of left talus, subsequent encounter for fracture with routine healing (principal); S92.101D Unspecified fracture of right talus, subsequent encounter for fracture with routine healing; S82.831D Other fracture of upper and lower end of right fibula, subsequent encounter for closed fracture with routine healing; S92.001D Unspecified fracture of right calcaneus, subsequent encounter for fracture with routine healing; X58.XXXD Exposure to other specified factors, subsequent encounter

== ENCOUNTER → 2017-06-27 | Outpatient (CLI) | payer OTHER ==
--- NOTE | 2017-06-27 15:39 | DIAGNOSTIC IMAGING REPORT ---
BILATERAL LOWER EXTREMITY VENOUS DOPPLER HISTORY: R60.0 Bilateral leg edema COMPARISON STUDY: None. FINDINGS: There is normal compressibility, flow, and augmentation within the bilateral lower extremity deep venous systems. IMPRESSION: No DVT within the right or left lower extremity. Electronically signed by: Addison Hernandez M.D. 06/27/2017 3:38 PM Dictated Date/Time: 06/27/2017 3:37 PM
== END | disposition home or self-care (01) ==
LOC: C.ULTR 14:23
PROVIDERS: ATTEND Internal Medicine
DX: R60.0 Localized edema (principal)

== ENCOUNTER 2021-05-31 16:17 | Inpatient (IN) ==
[2021-05-31 18:30] LABS: Basophils # (auto) 0.01 K/uL (0-0.2); Basophils % (auto) 0.2 %; Eosinophils # (auto) 0.16 K/uL (0-0.5); Eosinophils % (auto) 3.2 %; Hematocrit (blood only) 39.6 % (42-52); Hemoglobin 12.9 g/dL (14.0-18.0); Immature Granulocytes # (auto) 0.01 K/uL (0.00-0.02); Immature Granulocytes % (auto) 0.2 %; Lymphocytes # (auto) 1.96 K/uL (1.2-3.4); Lymphocytes % (auto) 39.6 %; Mean Corpuscular Hemoglobin 28.5 pg (25-34); Mean Corpuscular Hgb Conc 32.6 g/dL (32-36); Mean Corpuscular Volume 87.6 fL (80-100); Mean Platelet Volume 11.2 fL (7.4-10.4); Monocytes % (auto) 8.1 %; Neutrophils # (auto) 2.41 K/uL (1.4-6.5); Neutrophils % (auto) 48.7 %; Platelet Count 170 K/uL (130-400); RDW Coefficient of Variation 13.7 % (11.5-14.5); Red Blood Count 4.52 M/uL (4.7-6.1); White Blood Count 4.95 K/uL (4.8-10.8)
[2021-05-31 18:48] LABS: Albumin Globulin Ratio 1.3 (0.9-2); Albumin Level 4.6 gm/dl (3.4-5.0); BUN Creatinine Ratio 15.2 (10-20); Bilirubin,Total 0.7 mg/dl (0.2-1.0); Calcium 9.6 mg/dl (8.5-10.1); Creatinine Clr Calc Pharmacy 46.1 ml/min; Est GFR (Non-African American) 31.9 ml/min; Globulin 3.6 gm/dl (2.5-4.0); Potassium 4.1 mmol/L (3.5-5.1); Total Protein 8.2 gm/dl (6.0-8.3)
--- NOTE | 2021-05-31 19:27 | CT Scan Report ---
CT tib/fib LT wo con HISTORY: 61 years-old Male persistent wound patient presents with chronic nonhealing wound of the le ft lower leg COMPARISON: Left tibia and fibula radiographs 07/30/2019, duplex venous Doppler study 05/25/2021 TECHNIQUE: Multiple axial CT images of the left tibia and fibula were obtained without the use of IV contrast. A dose lowering technique was used consistent with the principals of JARAD. FINDINGS: Soft tissue wound within the lower pretibial tissues redemonstrated. Mild associated skin thickening with subcutaneous edema of the lower leg and ankle. No fluid collection or opaque foreign body. Ligam ents and tendons are not well evaluated by CT technique. Mild generalized muscle atrophy. Demineralized appearance of the bones. No acute fracture, dislocation or osseous erosion. Os trigonum . I arthritis of the ankle and hindfoot. Mild osteoarthritis of the knee. IMPRESSION: 1. No acute fracture, dislocation or osseous erosion to suggest osteomyelitis. 2. Chronic soft tissue wound within the lower pretibial tissues with associated cellulitis. No absces s. ACT 112: Negative or not required by law. The above report was generated using voice recognition software. It may contain grammatical, syntax o r spelling errors. Electronically signed by: Eber Matos M.D. 05/31/2021 7:25 PM
[2021-05-31 20:03] LABS: Appearance Urine Clear (Clear); Bilirubin Urine Negative (Negative); Blood Urine Negative (Negative); Color Urine Dark Yellow; Glucose Urine UA Negative (Negative); Ketones Urine Trace (Negative); Leukocyte Esterase Urine Negative (Negative); Nitrite Urine Negative (Negative); Protein Urine Negative (Negative); Specific Gravity Urine 1.014 (1.000-1.030); Urobilinogen Urine Negative (Negative)
[2021-05-31] MEDS ORDERED: cefTRIAXone SODIUM 1,000 MG/50 ML BAG IV STA (20:17)
--- NOTE | 2021-05-31 20:32 | History & Physical Report ---
Date of Service May 31, 2021 Assessment & Plan (1) Cellulitis of left lower extremity without foot: Plan: Cellulitis of left lower extremity/failure of outpatient treatment with Keflex and Bactrim- Placed on daptomycin IV and ceftriaxone IV CT lower extremity negative for osteomyelitis (2) Failure of outpatient treatment: Plan: See above (3) CECIL (acute kidney injury): Plan: Creatinine 2.17 upon admission, with baseline 1.09 Continue NSS at 125 mils per hour Repeat laboratories in a.m. (4) HTN (hypertension): Plan: Continue amlodipine (5) Hepatitis C: Plan: Continue Mavyret (6) Narcotic abuse in remission: Plan: Continue methadone (7) Degenerative joint disease of left hip: Plan: Patient is reportedly done to go [facility] once lower extremity infection is resolved History of Present Illness Chief Complaint: The patient presents to the emergency department with concerns regarding worsening left lower extremity anterior tibial wound Primary Care Provider: Brandon Finn MD The patient is a 61-year-old male with a past medical history including left lower extremity cellulitis, degenerative joint disease of left hip, hypertension, acid reflux, anemia, B-cell lymphoma, bipolar disorder, hepatitis C, peripheral neuropathy, thrombocytopenia and nonhealing surgical wound. The patient initially been treated with a course of Keflex, and more recently was changed to Bactrim. His infection initially began as a small scab, that was initially wrapped, and he reports no change in the wrap and a probe interval, and it became more significantly affected. His left leg has been more swollen, and he has undergone recent lower extremity venous Dopplers were negative for DVT. Allergies Allergy/AdvReac Type Severity Reaction Status Date / Time No Known Allergies Allergy Verified 05/31/21 20:41 Home Medications Medication Instructions Recorded Confirmed Type methadone 10 mg/5 mL oral solution 83 mg PO DAILY 05/24/20 05/31/21 History Aluminum Crutches #1 ea 10/30/20 05/25/21 Rx betamethasone dipropionate 0.05 % 1 applic TOPICAL DAILY PRN #45 g 03/04/21 05/31/21 Rx topical cream amlodipine 5 mg tablet 7.5 mg PO DAILY #45 tab 05/20/21 05/31/21 Rx sulfamethoxazole 800 1 tab PO BID #14 tab 05/25/21 05/31/21 Rx mg-trimethoprim 160 mg tablet (Bactrim DS) glecaprevir 100 mg-pibrentasvir 40 3 tab PO DAILY 05/31/21 05/31/21 History mg tablet (Mavyret) Past Med/Surg History Medical History (Updated 06/01/21 @ 03:12 by Daryn Red MD) B-cell lymphoma Hepatitis C Hiatal hernia Osteomyelitis Surgical History History of laparoscopy Lymphadenectomy History of surgery multiple debridement surgeries though the right leg, lumbar spine, left SI joint for MRSA septicemia and osteomyelitis in 2007 History of surgery Surgery for ruptured renal aneurysm Family History Mother Emphysema of lung Father Emphysema of lung Prostate cancer Aunt Urinary bladder cancer Denies family history of Ovarian cancer Myocardial infarction Breast cancer Colorectal cancer Social History Smoking Status: Never smoker Hx Alcohol Use: Yes Alcohol type: hard liquor Hx Substance Use: No Preferred Language: Romanian Communication Ability: Effective Visual Impairment: No Limitations Hearing Ability: Normal Fluorescent Solution Mixer Required: No Beliefs That Will Affect Care: None marital status: Single Current Living Situation: Significant Other current occupational status: disabled Other Information That Helps Us Care for You: No Feels Safe at Home: Yes Safety Concerns: Feels Safe At This Time Seatbelt Use: always Assistive Devices: Cane and Denture - Upper Review of Systems Review of Systems: The patient denies chest pain, palpitations, shortness of breath, dyspnea on exertion, cough, sore throat, fevers, chills, sweats, nausea, vomiting, diarrhea , constipation, abdominal pain, pelvic pain, blood in urine or stool, dysuria, urinary frequency or urgency, lightheadedness, dizziness, headache, memory loss, loss of consciousness, abnormal bruising or bleeding, imbalance, focal or generalized weakness, numbness or tingling in arms or legs, generalized arthralgias or myalgias, back or neck pain, or night sweats. The review of systems is otherwise negative other than for that already noted above, and at least 10 systems have been reviewed. Physical Exam Physical Exam: The patient is awake, alert and oriented 3, well developed and well nourished, normocephalic and atraumatic, lying in bed and in no acute distress. HEENT--PERRL, EOMI, mucous membranes and oropharynx normal Neck--supple. No JVD. No bruits. Thyroid normal, trachea midline, no adenopathy. Heart--normal S1 and S2. No murmurs, rubs or gallops. Lungs--clear bilaterally, no respiratory distress, no accessory muscle use. Abdomen--normal bowel sounds and soft. Nontender. Nondistended, no hernias or masses, no organomegaly. Extremities--left lower extremity enlarged compared to right, with 1+ bilateral pretibial pitting edema. Left contreras with moderate erythema Dermatologic--as above Neurologic--cranial nerves II through XII grossly intact. Rheumatologic--normal range of motion. Psychiatric--normal affect. Results & Data Results & Data ([facility]) Vital Signs (Past 12 Hours) Vital Signs Temp Pulse Resp BP Pulse Ox 05/31/21 16:56 36.4 C L 67 20 148/82 H 96 Laboratory Results Laboratory Results WBC 4.95 K/uL (4.8-10.8) 05/31/21 18:20 RBC 4.52 M/uL (4.7-6.1) L 05/31/21 18:20 Hgb 12.9 g/dL (14.0-18.0) L 05/31/21 18:20 Hct 39.6 % (42-52) L 05/31/21 18:20 MCV 87.6 fL (80-100) 05/31/21 18:20 MCH 28.5 pg (25-34) 05/31/21 18:20 MCHC 32.6 g/dL (32-36) 05/31/21 18:20 RDW Std Deviation 44.0 fL (36.4-46.3) 05/31/21 18:20 RDW Coeff of Dagoberto 13.7 % (11.5-14.5) 05/31/21 18:20 Plt Count 170 K/uL (130-400) 05/31/21 18:20 MPV 11.2 fL (7.4-10.4) H 05/31/21 18:20 Immature Gran % (Auto) 0.2 % 05/31/21 18:20 Neut % (Auto) 48.7 % 05/31/21 18:20 Lymph % (Auto) 39.6 % 05/31/21 18:20 [place] % (Auto) 8.1 % 05/31/21 18:20 Eos % (Auto) 3.2 % 05/31/21 18:20 Baso % (Auto) 0.2 % 05/31/21 18:20 Neut # (Auto) 2.41 K/uL (1.4-6.5) 05/31/21 18:20 Lymph # (Auto) 1.96 K/uL (1.2-3.4) 05/31/21 18:20 [place] # (Auto) 0.40 K/uL (0.11-0.59) 05/31/21 18:20 Eos # (Auto) 0.16 K/uL (0-0.5) 05/31/21 18:20 Baso # (Auto) 0.01 K/uL (0-0.2) 05/31/21 18:20 Immature Gran # (Auto) 0.01 K/uL (0.00-0.02) 05/31/21 18:20 Sodium 133 mmol/L (136-145) L 05/31/21 18:20 Potassium 4.1 mmol/L (3.5-5.1) 05/31/21 18:20 Chloride 95 mmol/L (98-107) L 05/31/21 18:20 Carbon Dioxide 30 mmol/L (21-32) 05/31/21 18:20 Anion Gap 8 (3-11) 05/31/21 18:20 BUN 33 mg/dl (6-23) H 05/31/21 18:20 Creatinine 2.17 mg/dl (0.6-1.4) H 05/31/21 18:20 Est Cr Clr Drug Dosing 46.1 ml/min 05/31/21 18:20 Est GFR ( Amer) 37.0 ml/min 05/31/21 18:20 Est GFR (Non-Af Amer) 31.9 ml/min 05/31/21 18:20 BUN/Creatinine Ratio 15.2 (10-20) 05/31/21 18:20 Glucose 128 mg/dl (70-99(Fasting)) H 05/31/21 18:20 Calcium 9.6 mg/dl (8.5-10.1) 05/31/21 18:20 Total Bilirubin 0.7 mg/dl (0.2-1.0) 05/31/21 18:20 AST 22 U/L (13-39) 05/31/21 18:20 ALT 10 U/L (7-52) 05/31/21 18:20 Alkaline Phosphatase 60 U/L (34-104) 05/31/21 18:20 Total Protein 8.2 gm/dl (6.0-8.3) 05/31/21 18:20 Albumin 4.6 gm/dl (3.4-5.0) 05/31/21 18:20 Globulin 3.6 gm/dl (2.5-4.0) 05/31/21 18:20 Albumin/Globulin Ratio 1.3 (0.9-2) 05/31/21 18:20 Urine Color Dark Yellow 05/31/21 19:45 Urine Appearance Clear (Clear) 05/31/21 19:45 Urine pH 5.0 (4.5-7.5) 05/31/21 19:45 Ur Specific [place] 1.014 (1.000-1.030) 05/31/21 19:45 Urine Protein Negative (Negative) 05/31/21 19:45 Urine Glucose (UA) Negative (Negative) 05/31/21 19:45 Urine Ketones Trace (Negative) H 05/31/21 19:45 Urine Blood Negative (Negative) 05/31/21 19:45 Urine Nitrite Negative (Negative) 05/31/21 19:45 Urine Bilirubin Negative (Negative) 05/31/21 19:45 Urine Urobilinogen Negative (Negative) 05/31/21 19:45 Ur Leukocyte Esterase Negative (Negative) 05/31/21 19:45 Nasal Screen MRSA (PCR) Negative (Negative) 05/31/21 21:03 SARS-CoV-2, RNA, NAAT NEGATIVE (NEGATIVE) 05/31/21 21:[address] 05/31/21 18:49 CT tib/fib LT wo con HISTORY: 61 years-old Male persistent wound patient presents with chronic nonhealing wound of the left lower leg COMPARISON: Left tibia and fibula radiographs 07/30/2019, duplex venous Doppler study 05/25/2021 TECHNIQUE: Multiple axial CT images of the left tibia and fibula were obtained without the use of IV contrast. A dose lowering technique was used consistent with the principals of JARAD. FINDINGS: Soft tissue wound within the lower pretibial tissues redemonstrated. Mild associated skin thickening with subcutaneous edema of the lower leg and ankle. No fluid collection or opaque foreign body. Ligaments and tendons are not well evaluated by CT technique. Mild generalized muscle atrophy. Demineralized appearance of the bones. No acute fracture, dislocation or osseous erosion. Os trigonum. I arthritis of the ankle and hindfoot. Mild osteoarthritis of the knee. IMPRESSION: 1. No acute fracture, dislocation or osseous erosion to suggest osteomyelitis. 2. Chronic soft tissue wound within the lower pretibial tissues with associated cellulitis. No abscess. ACT 112: Negative or not required by law. The above report was generated using voice recognition software. It may contain grammatical, syntax or spelling errors. Electronically signed by: Eber Matos M.D. 05/31/2021 7:25 PM Code Status & VTE Plan Code Status Full code VTE Prophylaxis Plan VTE Prophylaxis will be ordered: Yes PG Care Time/CCT Total # of Minutes Spent Total Time Spent with Patient: Total time spent is greater than 50% in coordination of care (as documented) at patient's floor/unit and/or counseling patient: Coding Level of Care Code 62204 Initial Inpt Care Lvl 3 Diagnoses Failure of outpatient treatment Z78.9 Cellulitis of left lower extremity without foot L03.116 CECIL (acute kidney injury) N17.9 HTN (hypertension) I10 Hepatitis C B19.20 Narcotic abuse in remission F11.11 Degenerative joint disease of left hip M16.12
[2021-05-31] MEDS: SODIUM CHLORIDE 0.9% 1000ML 1,000 ML IV SCH (20:57)
[2021-05-31] MEDS ORDERED: ONDANSETRON INJ 2 MG/ML 2 ML VIAL IV PRN (23:55)
[2021-05-31] MEDS ORDERED: ACETAMINOPHEN 325 MG TAB PO PRN (23:55)
[2021-06-01] MEDS: SODIUM CHLORIDE 0.9% 1000ML 1,000 ML IV SCH ×3 (00:10→16:36)
--- NOTE | 2021-06-01 01:42 | Emergency Department Note ---
History of Present Illness General Chief complaint: Infection, Wound Stated complaint: INFECTED WOUND ON LEFT CONTRERAS Time Seen by Provider: 05/31/21 18:38 Source: patient Mode of arrival: wheelchair Limitations: no limitations History of Present Illness Provider complaint: Persistent wound, infection Onset (ago): week(s) Location: lower extremity Radiation: proximal and distal Severity: moderate Pain Consistency: + constant Maximum Pain Intensity: 4 Relieved By: + none Exacerbated By: + movement This is a 61-year-old male who presents the emergency department complaining of persistent and worsening left lower extremity wound. Patient states symptoms began several weeks ago. He saw his PCP and was started on Keflex. He states after completing a course of Keflex without resolution, he was then started on Bactrim. He states he has 1 pill left yet of the course of Bactrim. Patient states initially pain began in the mid contreras with redness and a small scab that had opened up and began to drain. He states this began to extend distally down into the foot and now feels as though it is coming more proximally into the calf. He states the left lower extremity is swollen compared to the right. States the pain is not as severe as it initially was, however is still present. He denies fevers or chills. Patient denies that he is a diabetic. Denies any history of MRSA. He denies any other trauma or injury. Patient was also sent for an outpatient Doppler of the left lower extremity to rule out DVT, this was negative. Patient seen in the [facility] as he presented on a day of high volume and acuity. Pt seen during a time of high acuity and national emergency pandemic while wearing PPE. Home Medications Medication Instructions Recorded Confirmed Type methadone 10 mg/5 mL oral solution 83 mg PO DAILY 05/24/20 05/31/21 History Aluminum Crutches #1 ea 10/30/20 05/25/21 Rx betamethasone dipropionate 0.05 % 1 applic TOPICAL DAILY PRN #45 g 03/04/21 05/31/21 Rx topical cream amlodipine 5 mg tablet 7.5 mg PO DAILY #45 tab 05/20/21 05/31/21 Rx sulfamethoxazole 800 1 tab PO BID #14 tab 05/25/21 05/31/21 Rx mg-trimethoprim 160 mg tablet (Bactrim DS) glecaprevir 100 mg-pibrentasvir 40 3 tab PO DAILY 05/31/21 05/31/21 History mg tablet (Mavyret) Allergies Allergy/AdvReac Type Severity Reaction Status Date / Time No Known Allergies Allergy Verified 05/31/21 20:41 Past Med/Surg History Medical History (Updated 06/01/21 @ 01:42 by Aura Oh DO) B-cell lymphoma Hepatitis C Hiatal hernia Osteomyelitis Surgical History History of laparoscopy Lymphadenectomy History of surgery multiple debridement surgeries though the right leg, lumbar spine, left SI joint for MRSA septicemia and osteomyelitis in 2007 History of surgery Surgery for ruptured renal aneurysm Family History Mother Emphysema of lung Father Emphysema of lung Prostate cancer Aunt Urinary bladder cancer Denies family history of Ovarian cancer Myocardial infarction Breast cancer Colorectal cancer Social History Smoking Status: Never smoker Hx Alcohol Use: Yes Alcohol type: hard liquor Hx Substance Use: No Preferred Language: Persian Communication Ability: Effective Visual Impairment: No Limitations Hearing Ability: Normal Policy Writer Sales Required: No Beliefs That Will Affect Care: None marital status: Single Current Living Situation: Significant Other current occupational status: disabled Other Information That Helps Us Care for You: No Feels Safe at Home: Yes Safety Concerns: Feels Safe At This Time Seatbelt Use: always Assistive Devices: Cane and Denture - Upper Review of Systems A total of 10 systems reviewed and were otherwise negative All systems reviewed & are unremarkable except as noted in HPI & below Physical Exam Vital Signs Vital Signs - 24 hr 05/31/21 16:56 Temperature 36.4 C L Temperature Source Temporal Artery Scan Pulse Rate 67 Pulse Rhythm Regular Pulse Strength Normal Respiratory Rate 20 Respiratory Effort / Characteristics Non-Labored Spontaneous Respiratory Depth Normal Respiratory Pattern Regular Blood Pressure 148/82 H Blood Pressure Mean 104 Blood Pressure Position Sitting Pulse Oximetry 96 Oxygen Delivery Method Room Air Sepsis Recent Fever Within 48 Hours No Sepsis New/Unexplained Change in Mental Status N/A Sepsis Action Taken by Nursing No Action Required GENERAL: alert, well appearing, well nourished, no distress, non-toxic EYE EXAM: normal conjunctiva, PERRL and EOM's grossly intact OROPHARYNX: no exudate, no erythema, lips, buccal mucosa, and tongue normal and mucous membranes are moist NECK: supple, no nuchal rigidity, no adenopathy, non-tender LUNGS: Clear to auscultation. Normal chest wall mechanics, no w/r/r HEART: no murmurs, S1 normal and S2 normal ABDOMEN: abdomen soft, non-tender, normo-active bowel sounds, no masses, no rebound or guarding. BACK: Back is symmetrical on inspection and there is no deformity, no midline tenderness, no CVA tenderness. SKIN: no rashes and no bruising UPPER EXTREMITIES: upper extremities are grossly normal. FROM, nml pulses b/l. LOWER EXTREMITIES: 2+ LLE pitting edema. FROM, nml pulses b/l. Compartments soft. Small ulcerative wound noted to the anterior tib-fib region, minimal drainage, no bleeding, surrounding erythema with mild warmth noted distally. There is obvious swelling of the distal left lower extremity compared to the right. Chronic appearing deformity from prior fracture/trauma noted to the right foot. No crepitus. NEURO EXAM: Normal sensorium, cranial nerves II-XII grossly intact, normal speech, no gross weakness of arms, no gross weakness of legs. Gross sensation intact. Course Administered Medications Sodium Chloride (Nss 1000ml) 1,000 mls @ 125 mls/hr IV .Q8H CARLOS Stop: 06/30/21 19:14 Last Admin: 06/01/21 00:10 Dose: 125 mls/hr Documented by: [id number] Infusion: 06/01/21 00:06 Dose: 0 mls/hr Documented by: [id number] Admin: 05/31/21 20:57 Dose: 125 mls/hr Documented by: [id number] Discontinued Medications Ceftriaxone Sodium (Rocephin) 1,000 mg in 50 mls @ 100 mls/hr IV NOW STA Stop: 05/31/21 20:46 Last Infusion: 05/31/21 22:20 Dose: 0 mls/hr Documented by: [id number] Admin: 05/31/21 20:57 Dose: 100 mls/hr Documented by: [id number] Medical Decision Making Differential Diagnosis Cellulitis, abscess, MRSA infection, DVT, necrotizing fasciitis, dermatitis, drug eruption, allergic reaction, as well as other pathologies. Medical Records Attestation: I reviewed the patient's medical records. Home Medications Current Medication List: was personally reviewed by me Laboratory Data Attestation: I reviewed the patient's lab results. Result diagrams: 05/31/21 18:20 05/31/21 18:20 Lab Results 05/31/21 05/31/21 05/31/21 Range/Units 18:20 18:20 19:45 WBC 4.95 (4.8-10.8) K/uL RBC 4.52 L (4.7-6.1) M/uL Hgb 12.9 L (14.0-18.0) g/dL Hct 39.6 L (42-52) % MCV 87.6 (80-100) fL MCH 28.5 (25-34) pg MCHC 32.6 (32-36) g/dL RDW Std Deviation 44.0 (36.4-46.3) fL RDW Coeff of Dagoberto 13.7 (11.5-14.5) % Plt Count 170 (130-400) K/uL MPV 11.2 H (7.4-10.4) fL Immature Gran % (Auto) 0.2 % Neut % (Auto) 48.7 % Lymph % (Auto) 39.6 % [place] % (Auto) 8.1 % Eos % (Auto) 3.2 % Baso % (Auto) 0.2 % Neut # (Auto) 2.41 (1.4-6.5) K/uL Lymph # (Auto) 1.96 (1.2-3.4) K/uL [place] # (Auto) 0.40 (0.11-0.59) K/uL Eos # (Auto) 0.16 (0-0.5) K/uL Baso # (Auto) 0.01 (0-0.2) K/uL Immature Gran # (Auto) 0.01 (0.00-0.02) K/uL Sodium 133 L (136-145) mmol/L Potassium 4.1 (3.5-5.1) mmol/L Chloride 95 L (98-107) mmol/L Carbon Dioxide 30 (21-32) mmol/L Anion Gap 8 (3-11) BUN 33 H (6-23) mg/dl Creatinine 2.17 H (0.6-1.4) mg/dl Est Cr Clr Drug Dosing 46.1 ml/min Est GFR ( Amer) 37.0 ml/min Est GFR (Non-Af Amer) 31.9 ml/min BUN/Creatinine Ratio 15.2 (10-20) Glucose 128 H (70-99(Fasting)) mg/dl Calcium 9.6 (8.5-10.1) mg/dl Total Bilirubin 0.7 (0.2-1.0) mg/dl AST 22 (13-39) U/L ALT 10 (7-52) U/L Alkaline Phosphatase 60 (34-104) U/L Total Protein 8.2 (6.0-8.3) gm/dl Albumin 4.6 (3.4-5.0) gm/dl Globulin 3.6 (2.5-4.0) gm/dl Albumin/Globulin Ratio 1.3 (0.9-2) Urine Color Dark Yellow Urine Appearance Clear (Clear) Urine pH 5.0 (4.5-7.5) Ur Specific [place] 1.014 (1.000-1.030) Urine Protein Negative (Negative) Urine Glucose (UA) Negative (Negative) Urine Ketones Trace H (Negative) Urine Blood Negative (Negative) Urine Nitrite Negative (Negative) Urine Bilirubin Negative (Negative) Urine Urobilinogen Negative (Negative) Ur Leukocyte Esterase Negative (Negative) Imaging Data Radiologist's Impression: Lower Extremity CT 05/31/21 18:49 CT tib/fib LT wo con HISTORY: 61 years-old Male persistent wound patient presents with chronic nonhealing wound of the left lower leg COMPARISON: Left tibia and fibula radiographs 07/30/2019, duplex venous Doppler study 05/25/2021 TECHNIQUE: Multiple axial CT images of the left tibia and fibula were obtained without the use of IV contrast. A dose lowering technique was used consistent with the principals of ALARA. FINDINGS: Soft tissue wound within the lower pretibial tissues redemonstrated. Mild assoc iated skin thickening with subcutaneous edema of the lower leg and ankle. No fluid collection or opaque foreign body. Ligaments and tendons are not well evaluated by CT technique. Mild generalized muscle atrophy. Demineralized appearance of the bones. No acute fracture, dislocation or osseous erosion. Os trigonum. I arthritis of the ankle and hindfoot. Mild osteoarthritis of the knee. IMPRESSION: 1. No acute fracture, dislocation or osseous erosion to suggest osteomyelitis. 2. Chronic soft tissue wound within the lower pretibial tissues with associated cellulitis. No abscess. ACT 112: Negative or not required by law. The above report was generated using voice recognition software. It may contain grammatical, syntax or spelling errors. Electronically signed by: Eber Matos M.D. 05/31/2021 7:25 PM MDM Narrative This is a 7-year-old male presents emergency department complaining of persistent left lower extremity wound despite 2 courses of antibiotics as an outpatient. Patient denied any history of diabetes or MRSA. Patient was noted to have persistent appearance of cellulitis with obvious edema to the involved left lower extremity compared to the unaffected side. Patient had no other systemic symptoms on bedside discussion. Patient was noted on labs to have CECIL, I suspect likely secondary to the course of Bactrim. Patient was hemodynamically stable. Case discussed with hospitalist for additional evaluation and management. Patient started on antibiotics per their recommendation. Patient made aware of all results, verbalized understanding and was in agreement with plan. At this time I do not suspect bacteremia/sepsis, necrotizing fasciitis, compartment syndrome, DVT, or septic arthritis. No evidence on CT of osteomyelitis or abscess. Impression & Plan Cellulitis, Leg wound, left, Failure of outpatient treatment, CECIL (acute kidney injury) Discharge Plan Visit Data Chief Complaint: Infection, Wound Stated Complaint: INFECTED WOUND ON LEFT CONTRERAS ED Provider: Aura Oh Discharge Problem: Cellulitis, Leg wound, left, Failure of outpatient treatment, CECIL (acute kidney injury) Patient Disposition: Admitted As Inpatient Discharge Instructions Interventions: ED Discharge Assessment Last Done: 05/31/21 23:50 Discharge Problem: Cellulitis Qualifiers: Site of cellulitis: extremity Site of cellulitis of extremity: lower extremity Laterality: left Qualified Code(s): L03.116 - Cellulitis of left lower limb Leg wound, left Qualifiers: Encounter type: initial encounter Qualified Code(s): S81.802A - Unspecified open wound, left lower leg, initial encounter
[2021-06-01] MEDS ORDERED: DAPTOmycin 325 MG in SYRINGE 0 ML IV SCH (02:00)
[2021-06-01 07:01] LABS: Basophils # (auto) 0.02 K/uL (0-0.2); Basophils % (auto) 0.4 %; Eosinophils # (auto) 0.23 K/uL (0-0.5); Eosinophils % (auto) 4.7 %; Hemoglobin 13.6 g/dL (14.0-18.0); Immature Granulocytes # (auto) 0.01 K/uL (0.00-0.02); Immature Granulocytes % (auto) 0.2 %; Lymphocytes # (auto) 2.27 K/uL (1.2-3.4); Lymphocytes % (auto) 46.3 %; Mean Corpuscular Hemoglobin 28.3 pg (25-34); Mean Corpuscular Hgb Conc 32.4 g/dL (32-36); Mean Corpuscular Volume 87.5 fL (80-100); Mean Platelet Volume 11.4 fL (7.4-10.4); Monocytes # (auto) 0.33 K/uL (0.11-0.59); Monocytes % (auto) 6.7 %; Neutrophils # (auto) 2.04 K/uL (1.4-6.5); Neutrophils % (auto) 41.7 %; Platelet Count 152 K/uL (130-400); RDW Coefficient of Variation 13.7 % (11.5-14.5); RDW Standard Deviation 44.2 fL (36.4-46.3)
[2021-06-01 07:28] LABS: Albumin Globulin Ratio 1.2 (0.9-2); Albumin Level 4.4 gm/dl (3.4-5.0); BUN Creatinine Ratio 17.1 (10-20); Bilirubin,Total 0.5 mg/dl (0.2-1.0); Calcium 9.6 mg/dl (8.5-10.1); Creatinine Clr Calc Pharmacy 63.2 ml/min; Est GFR (African American) 54.3 ml/min; Est GFR (Non-African American) 46.8 ml/min; Globulin 3.6 gm/dl (2.5-4.0); Potassium 3.9 mmol/L (3.5-5.1)
[2021-06-01] MEDS: amLODIPine BESYLATE 5 MG TAB PO SCH (08:42)
[2021-06-01] MEDS: METHADONE ORAL SOLN 2 MG/ML PO SCH (08:47)
[2021-06-01] MEDS: METHADONE PO SCH (08:48)
[2021-06-01] MEDS ORDERED: cefTRIAXone SODIUM 2,000 MG in DEXTROSE 5% 50 ML IV SCH (09:00)
--- NOTE | 2021-06-01 13:13 | Hospitalist Progress Note ---
Date of Service June 01, 2021 Assessment & Plan (1) Venous stasis ulcer: Plan: 61 y/o with clinical evidence to suggest venous insufficiency * ulcer to the anterior left contreras after a small scab formed from his boots rubbing * I d not appreciate significant findings to support cellulitis at this time * recently treated with Keflex and Bactrim * CT showing no tunneling of this wound, no abscess osteomyelitis * initially empirically started on Dapto (does have a h/o MRSA)/Rocephin. Again, not overly convinced that this is infected. * hold abx at this time * obtain ERS/Procal and CRP-- if elevated, would be more inclined to resume abx * wound culture obtained and pending-- superficial wound * consult wound nurse-- appreciate recommendations * mupirocin oint bid until further recommendations per wound nurse (2) Venous stasis: Plan: * Lengthy discussion with patient regarding fluid/edema management * Patient should elevate legs * Recommend long-term compression stockings * Patient has significant stasis changes. His pulses are palpable but will obtain an arterial ultrasound to assess flow (3) CECIL (acute kidney injury): Plan: * Creatinine 2.17 upon admission, with baseline 1.09. down to 1.5 * Continue NSS * Suspect secondary to recent Bactrim use (4) HTN (hypertension): Plan: * Continue amlodipine (5) Hepatitis C: Plan: * Continue Mavyret (6) Narcotic abuse in remission: Plan: * Continue methadone Admission and Anticipated Discharge Date Admission Date: May 31, 2021 Supervising Physician Co-Signing Physician Notes MIKE Supervision Note: I did not personally see or examine the patient today, but I verified all blandon points of MIKE Saha's assessment and plan with the following exceptions/additions: None Subjective Patient seen on daily rounds today. Vocalizes no significant complaints or concerns. Denies fevers, chills, chest pain, shortness of breath, abdominal pain, nausea or vomiting. Review of Systems Review of Systems: All systems reviewed and are unremarkable except as noted in HPI and below Denies fevers, chills, headache, nasal congestion, sore throat, cough, chest pain, shortness of breath, palpitations, orthopnea, PND, abdominal pain, nausea, vomiting, diarrhea, constipation, dysuria, hematuria, frequency, back pain, joint pain or swelling, easy bruising or bleeding Physical Exam Physical Exam: General: Resting comfortably in his hospital bed. He does not appear ill or toxic. NAD. HEENT: Head is AT/NC. Buccal mucosa is moist and pink Neck: No JVD. Negative hepatojugular reflex Cardiac: RRR without M/G/R Lungs: CTA without W/R/R Abdomen: Normoactive X4. Soft and nontender in all quadrants. Extremities: Venous stasis with stasis dermatitis of the bilateral lower extremities noted. There is a small wound in the superficial lower extremity distal to the knee on the left lower extremity. Leg is dusky rubor with flaking of skin but no significant erythema. Skin is not warm to touch. Left leg seems to be slightly more edematous than the right. There is significant onychom ycosis and onycholysis bilaterally. Neuro: A&O X4. Cranial nerves II through XII are grossly intact. No focal neuro deficits Skin: See above Psych: Appropriate affect. Pleasant and cooperative Results & Data Results & Data ([facility]) Vital Signs (Past 12 Hours) Vital Signs Temp Pulse Resp BP Pulse Ox 06/01/21 07:22 36.6 C 61 16 151/95 H 97 Laboratory Results 06/01/21 06:25 06/01/21 06:25 Procedure Result Verified Site Gram Stain Final 06/01/21-0753 Gram Stain Result No WBCs Seen No Organisms Seen Surface Wound Culture PENDING PG Care Time/CCT Total # of Minutes Spent Total Time Spent with Patient: Total time spent is greater than 50% in coordination of care (as documented) at patient's floor/unit and/or counseling patient: Coding Level of Care Code 84495 Subseq Hosp Care Lvl 2 Diagnoses CECIL (acute kidney injury) N17.9 HTN (hypertension) I10 Hepatitis C B19.20 Narcotic abuse in remission F11.11 Venous stasis I87.8 Venous stasis ulcer I83.009; L97.909
[2021-06-01] MEDS: PIBRENTASVIR PO SCH (18:11)
[2021-06-01] MEDS: GLECAPREVIR PO SCH (18:11)
[2021-06-01] MEDS: MUPIROCIN 2% OINT 22 GM TUBE EXT SCH (21:17)
--- NOTE | 2021-06-01 22:24 | Ultrasound Report ---
US arterial duplex LE LT CLINICAL HISTORY: Peripheral artery disease. assess flow/wound healing ability. COMPARISON: None. TECHNIQUE: Duplex sonography of left lower extremity arterial system was performed. Velocity measure ments provided are in centimeters per second FINDINGS: Plasencia scale, Doppler spectral analysis, and color imaging performed. Left common femoral artery: Triphasic flow velocity. 94 Left profunda femoris artery: Triphasic flow velocity. 43 Left superficial femoral artery: Triphasic flow velocity. 83 Left popliteal artery: Triphasic flow velocity. 86 Left posterior tibial artery: Triphasic. flow velocity. 123 Left anterior tibial artery: Triphasic flow velocity. 91 Left dorsalis pedis artery: Triphasic flow velocity. 148 Left peroneal artery: Monophasic flow velocity. 89 Left flow velocities: Segmental elevation in flow velocity is noted suggesting foci of focal stenosi s. IMPRESSION: 1. Patent arterial flow. Only minimal atherosclerotic plaque is demonstrated. However, there are mult iple foci of elevated flow velocity demonstrated within the arteries of the calf suggesting focal ibrahima nosis at these sites. ACT 112: Negative or not required by law. Electronically signed by: Ramez Sanon M.D. 06/01/2021 10:23 PM
[2021-06-02] MEDS: SODIUM CHLORIDE 0.9% 1000ML 1,000 ML IV SCH ×2 (02:21→11:18)
[2021-06-02 07:07] LABS: Basophils # (auto) 0.01 K/uL (0-0.2); Basophils % (auto) 0.3 %; Eosinophils # (auto) 0.21 K/uL (0-0.5); Eosinophils % (auto) 5.4 %; Hematocrit (blood only) 37.4 % (42-52); Immature Granulocytes # (auto) 0.01 K/uL (0.00-0.02); Immature Granulocytes % (auto) 0.3 %; Lymphocytes % (auto) 48.5 %; Mean Corpuscular Hemoglobin 28.4 pg (25-34); Mean Corpuscular Hgb Conc 32.1 g/dL (32-36); Mean Corpuscular Volume 88.4 fL (80-100); Mean Platelet Volume 10.8 fL (7.4-10.4); Monocytes # (auto) 0.23 K/uL (0.11-0.59); Monocytes % (auto) 5.9 %; Neutrophils # (auto) 1.56 K/uL (1.4-6.5); Neutrophils % (auto) 39.6 %; Platelet Count 129 K/uL (130-400); RDW Coefficient of Variation 13.7 % (11.5-14.5); Red Blood Count 4.23 M/uL (4.7-6.1); White Blood Count 3.92 K/uL (4.8-10.8)
[2021-06-02 07:26] LABS: Albumin Globulin Ratio 1.2 (0.9-2); Albumin Level 3.8 gm/dl (3.4-5.0); BUN Creatinine Ratio 19.4 (10-20); Bilirubin,Total 0.6 mg/dl (0.2-1.0); Creatinine Clr Calc Pharmacy 71.9 ml/min; Est GFR (African American) 63.4 ml/min; Est GFR (Non-African American) 54.7 ml/min; Globulin 3.1 gm/dl (2.5-4.0); Potassium 4.3 mmol/L (3.5-5.1); Total Protein 6.9 gm/dl (6.0-8.3)
[2021-06-02] MEDS: amLODIPine BESYLATE 5 MG TAB PO SCH (08:31)
[2021-06-02] MEDS: METHADONE PO SCH (08:31)
[2021-06-02] MEDS: MUPIROCIN 2% OINT 22 GM TUBE EXT SCH (08:32)
[2021-06-02] MEDS: METHADONE ORAL SOLN 2 MG/ML PO SCH (08:32)
[2021-06-02] MEDS: PIBRENTASVIR PO SCH (08:32)
[2021-06-02] MEDS: GLECAPREVIR PO SCH (08:32)
--- NOTE | 2021-06-02 13:02 | Discharge Summary ---
Date of Service June 02, 2021 Admission HPI Per Admitting Provider The patient is a 61-year-old male with a past medical history including left lower extremity cellulitis, degenerative joint disease of left hip, hypertension, acid reflux, anemia, B-cell lymphoma, bipolar disorder, hepatitis C, peripheral neuropathy, thrombocytopenia and nonhealing surgical wound. The patient initially been treated with a course of Keflex, and more recently was changed to Bactrim. His infection initially began as a small scab, that was initially wrapped, and he reports no change in the wrap and a probe interval, and it became more significantly affected. His left leg has been more swollen, and he has undergone recent lower extremity venous Dopplers were negative for DVT. Principal Diagnosis 1. Venous stasis 2. Venous stasis ulcer 3. Stasis dermatitis 3. Mild PAD 4. AKIresolved Discharge Exam General: Resting comfortably in his hospital bed. He does not appear ill or toxic. NAD. HEENT: Head is AT/NC. Buccal mucosa is moist and pink Neck: No JVD. Negative hepatojugular reflex Cardiac: RRR without M/G/R Lungs: CTA without W/R/R Abdomen: Normoactive X4. Soft and nontender in all quadrants. Extremities: Venous stasis with stasis dermatitis of the bilateral lower extremities noted. There is a small wound in the superficial lower extremity distal to the knee on the left lower extremity. Leg is dusky rubor with flaking of skin but no significant erythema. Skin is not warm to touch. Left leg seems to be slightly more edematous than the right. There is significant onychomyc osis and onycholysis bilaterally. Neuro: A&O X4. Cranial nerves II through XII are grossly intact. No focal neuro deficits Skin: See above Psych: Appropriate affect. Pleasant and cooperative Discharge Data Allergies Allergy/AdvReac Type Severity Reaction Status Date / Time No Known Allergies Allergy Verified 05/31/21 20:41 Consultations 05/31/21 20:30 ED Decision to Admit Stat 06/02/21 11:10 Consult GUADALUPE methods analyst Routine Ordered Studies 05/31/21 18:49 CT tib/fib LT wo con Stat 06/01/21 13:17 US arterial duplex LE LT Routine Hospital Course (1) Venous stasis ulcer: 61 y/o with clinical evidence to suggest venous insufficiency * ulcer to the anterior left contreras after a small scab formed from his boots rubbing * I do not appreciate significant findings to support cellulitis at this time * recently treated with Keflex and Bactrim * CT showing no tunneling of this wound, no abscess osteomyelitis * initially empirically started on Dapto (does have a h/o MRSA)/Rocephin. Again, not overly convinced that this is infected-- abx stopped when seen 06/01 * ESR slightly elevated at 45 * procal negative <0.05 * CRP WNL at <0.50 * wound culture obtained : no organisms * At this time, there does not appear to be any evidence of an infectious process. He does have a stasis wound but no concurrent cellulitis. * Advise mupirocin ointment to the wound. Keep wound covered during the day but uncovered at night/let open to air * Keep the wound clean using soap and water. Pat dry. * Should follow-up with the wound clinicnurse navigator to help arrange (2) Venous stasis: * Lengthy discussion with patient regarding fluid/edema management * Patient should elevate legs * Recommend long-term compression stockings briefly discussed with wound clinic who will fit patient for these as needs accommodations given the mild PAD and the wound noted * Patient has significant stasis changes. * Did do an arterial ultrasound that showed focal stenosis throughout -- minimal PAD. ASA started Arterial Duplex IMPRESSION: 1. Patent arterial flow. Only minimal atherosclerotic plaque is demonstrated. However, there are multiple foci of elevated flow velocity demonstrated within the arteries of the calf suggesting focal stenosis at these sites. (3) CECIL (acute kidney injury): * Creatinine 2.17 upon admission--> down to 1.39 with IV hydration * Suspect secondary to recent Bactrim use * Avoid NSAIDs and other nephrotoxic agents * Recommend follow-up labs in 1 week at discretion of PCP (4) HTN (hypertension): * Continue amlodipine (5) Hepatitis C: * Continue Mavyret (6) Narcotic abuse in remission: * Continue methadone Follow-up with the wound clinic for wound care and fitting for JOBST STOCKINGS See the rest of the recommendations as outlined below Total Time Total Time Spent Total Time Spent (In Minutes): 45 Discharge Plan Discharge Items Patient Disposition: Home - Self-Care Reason For Visit: LLE CELLULITIS Discharge Diagnosis: 1. Venous Stasis (venous disease causing swelling) 2. Venous Ulcer (as discussed, from the DEoxygenated blood pooling)-- DOES NOT SEEM TO BE INFECTED 3. Mild Peripheral arterial Disease 4. Stasis Dermatitis (discoloration of the skin due to #1) Activity: Resume your previous activity Activity Comment: keep legs elevated Non-emergency contact: Primary Care Provider Call non-emergency contact if: you have any medication questions and your symptoms worsen Follow-up/Referrals: ProBrandon MD [Primary Care Provider] - 06/11/21 8:30 am Diet: Regular Addtl Attending Provider Instructions: -You presented to the hospital with a wound on your lower extremity that was initially thought to be infected -After further evaluation, you have a wound which is likely related to the venous insufficiency as we discussed. The wound does not appear to be infected -The changes in your legs is related to stasis dermatitis (the deoxygenated blood pooling in the lower extremities) -In addition, you do have a mild degree of peripheral arterial disease as well which makes it difficult for oxygenated blood to reach the legs. This also limits wound healing -Wash the legs with soap and water, pat dry. Apply cream as outlined below -Use the mupirocin ointment twice a day to the wound on the left leg -To the surrounding tissue on both legs, use the triamcinolone cream -Cover the wound on the left leg during the day but let it open to air at night -Keep your legs elevated as often as possible -Follow-up with the wound clinic to discuss this wound. In addition, you will be fitted with compression stockings -It is important to put the compression stockings on before getting up and out of bed as the edema will worsen if you do not -In addition, you were found to have acute kidney injury resulting in slightly abnormal labs/renal function -I suspect the abnormal renal function was due to the recent Bactrim use -Your renal function has normalized with IV fluids -Make sure that you push your fluids -Avoid NSAID medications (such as ibuprofen, Aleve, Advil, Mobic, Voltaren, Naprosyn) -Follow-up with your PCP within 7 to 10 days. Would advise follow-up labs in 1 week to further trend renal function. This is at the discretion of your PCP -Follow-up with wound clinic as scheduled -Follow-up with PCP within 7 to 10 days -Return to the ED for any new or worsening symptoms Pending Studies at Discharge: No Stand-Alone Forms: My [facility], Smoking Cessation Medications and DC Order Prescriptions: New triamcinolone acetonide 0.1 % cream 1 applic topical BID Qty: 80 RF: 0 mupirocin 2 % ointment 1 applic topical BID Qty: 22 RF: 0 Continued (DME) Aluminum Crutches Misc See Rx Instructions .Route Qty: 1 RF: 0 betamethasone dipropionate 0.05 % cream 1 applic topical DAILY PRN (Reason: skin irritation) Qty: 45 RF: 0 amlodipine 5 mg tablet 7.5 mg PO DAILY Qty: 45 RF: 2 methadone 10 mg/5 mL Solution 83 mg PO DAILY RF: 0 Mavyret 100-40 mg tablet 3 tab PO DAILY RF: 0 Discontinued sulfamethoxazole-trimethoprim [Bactrim DS] 800-160 mg tablet 1 tab PO BID Qty: 14 RF: 0 Discharge Orders: Discharge Order (Routine); Ordered 06/02/21 Ordered By: Maritza Fisher/Other Patient Handouts: ED Peripheral Artery Disease (PAD) Admission Data Admit Date/Time: 05/31/21 20:32 Attending Provider: Canelo Escobar Admit Provider: Daryn Red Primary Care Provider: Brandon Finn Other Providers: Daryn Red Other Interventions: Discharge Summary Assessment (RN) Last Done: 06/02/21 11:55 Supervising Physician Co-Signing Physician Notes I supervised Maritza Saha PA-C on the care of this patient. I interviewed and examined the patient independently of her. The plan is as written in her note except for any following changes/exceptions: None Doing well today. Legs closely examined. Agree with assessment of Maritza Saha that this does not look like cellulitis. The legs are non-tender, and more pink than outright red. No purulence at the site of the small ulcer. Agree with topical care and f/u with Wound Clinic. Ready for discharge. Coding Level of Care Code D/C DAY MANAGEMENT >30 MINS Diagnoses Venous stasis ulcer I83.009; L97.909 Venous stasis I87.8 CECIL (acute kidney injury) N17.9 HTN (hypertension) I10 Hepatitis C B19.20 Narcotic abuse in remission F11.11
== END 2021-06-02 15:40 | disposition home or self-care (01) | DRG 300 ==
LOC: ED 16:17 → SUATTDRO 20:32 → 3N 20:32